=== PATIENT | female | born 1955 | race Hispanic/Latino ===

== ENCOUNTER → 2019-05-13 | Outpatient (CLI) | payer MEDICARE | END | disposition home or self-care (01) | LOC: SHCH 10:42 | PROVIDERS: ATTEND Internal Medicine Cardiovascular Disease | DX: I10 Essential (primary) hypertension (principal); R06.09 Other forms of dyspnea | CPT/HCPCS: 93306 ==

== ENCOUNTER → 2019-07-06 | Outpatient (CLI) | payer MEDICARE ==
[~2019-07-06] VITALS: Ht 149.9 cm; Wt 80.7 kg
[~2019-07-06] MED LIST: REGADENOSON 0.4 MG/5 ML PF SYG IVP SCH
== END | disposition home or self-care (01) ==
LOC: SHCH 08:34
PROVIDERS: ATTEND Internal Medicine Cardiovascular Disease
DX: I10 Essential (primary) hypertension (principal); M06.9 Rheumatoid arthritis, unspecified; E78.5 Hyperlipidemia, unspecified; K21.9 Gastro-esophageal reflux disease without esophagitis; R06.09 Other forms of dyspnea; R06.02 Shortness of breath; Z79.82 Long term (current) use of aspirin; Z79.899 Other long term (current) drug therapy
CPT/HCPCS: 78452; 93017; A9500 ×2; J2785; 96374

== ENCOUNTER → 2020-09-01 | Outpatient (CLI) | payer MEDICARE | END | disposition home or self-care (01) | LOC: OIH 14:30 | PROVIDERS: ATTEND Internal Medicine | DX: M19.071 Primary osteoarthritis, right ankle and foot (principal); M19.072 Primary osteoarthritis, left ankle and foot; M77.31 Calcaneal spur, right foot; M19.041 Primary osteoarthritis, right hand; M19.042 Primary osteoarthritis, left hand; M85.842 Other specified disorders of bone density and structure, left hand; M85.841 Other specified disorders of bone density and structure, right hand; M21.831 Other specified acquired deformities of right forearm; M19.031 Primary osteoarthritis, right wrist; M20.12 Hallux valgus (acquired), left foot | CPT/HCPCS: 73630 ==

== ENCOUNTER → 2020-10-12 | Outpatient (CLI) | payer MEDICARE | END | disposition home or self-care (01) | LOC: SHCH 14:57 | PROVIDERS: ATTEND Internal Medicine Cardiovascular Disease | DX: I25.10 Atherosclerotic heart disease of native coronary artery without angina pectoris (principal); R07.9 Chest pain, unspecified; R06.09 Other forms of dyspnea | CPT/HCPCS: 93306; 93356 ==

== ENCOUNTER → 2023-03-18 | Outpatient (CLI) | payer MEDICARE ==
[~2023-03-18] MED LIST changes: +REGADENOSON 0.4 MG/5 ML PF SYG IVP ONE; -REGADENOSON 0.4 MG/5 ML PF SYG IVP SCH
== END | disposition home or self-care (01) ==
LOC: SHCH 08:08
PROVIDERS: ATTEND Internal Medicine Cardiovascular Disease
DX: I25.119 Atherosclerotic heart disease of native coronary artery with unspecified angina pectoris (principal); R06.09 Other forms of dyspnea; I48.91 Unspecified atrial fibrillation
CPT/HCPCS: 78452; 96374; 93017; J2785; A9500 ×2

== ENCOUNTER → 2024-05-12 | Outpatient (CLI) | payer OTHER, MEDICARE ==
--- NOTE | 2024-05-13 07:09 | HMCSR ---
APPROVED REPORT Laterality: Bilateral VELOCITY AND DOPPLER WAVEFORM ANALYSIS STAINED GLASS INSTALLER (R) 117.3cm/sec, Biphasic, STAINED GLASS INSTALLER (L) 107.7cm/sec, Biphasic, Prof Fem Art. (R) 71.8cm/sec, Biphasic, Prof Fem Art. (L) 59.4cm/sec, Biphasic, Fem Art Prox. (R) 95.2cm/sec, Biphasic, Fem Art Prox. (L) 93.9cm/sec, Biphasic, Fem Art Mid. (R) 107.7cm/sec, Biphasic, Fem Art Mid. (L) 109.0cm/sec, Biphasic, Fem Art Dist (R) 111.8cm/sec, Biphasic, Fem Art Dist. (L) 100.8cm/sec, Biphasic, Pop Art(AK) (R) 64.9cm/sec, Biphasic, Pop Art (AK) (L) 67.6cm/sec, Biphasic, Pop Art (Fossa)(R) 60.7cm/sec, Biphasic, Pop Art (Fossa) (L) 80.1cm/sec, Biphasic, Pop Art(BK) (R) 74.5cm/sec, Biphasic, Pop Art (BK) (L) 78.7cm/sec, Biphasic, JEWELRY STORE MANAGER Prox. (R) 59.2cm/sec, Biphasic, JEWELRY STORE MANAGER Prox. (L) 113.3cm/sec, Biphasic, JEWELRY STORE MANAGER Mid. (R) 122.8cm/sec, Biphasic, JEWELRY STORE MANAGER Mid. (L) 107.7cm/sec, Biphasic, JEWELRY STORE MANAGER Dist. (R) 164.1cm/sec, Biphasic, Mild < 50% JEWELRY STORE MANAGER Dist. (L) 105.8cm/sec, Biphasic, Per Art Dist. (R) 43.7cm/sec, Biphasic, Per Art Dist. (L) 66.1cm/sec, Biphasic, [place] Prox. (R) 46.5cm/sec, Biphasic, EMERSON Prox. (L) 83.1cm/sec, Biphasic, EMERSON Mid. (R) 68.5cm/sec, Biphasic EMERSON Mid. (L) 86.9cm/sec, Biphasic, EMERSON Dist. (R) 71.8cm/sec, Biphasic, EMERSON Dist. (L) 88.8cm/sec, Biphasic, Technologist Impression Diffuse atherosclerosis throughout the bilateral lower extremities. There is evidence of mild stenosis in the right posterior tibial artery. Conclusion Mild peripheral arterial disease Conclusion Mild peripheral arterial disease
--- NOTE | 2024-05-13 07:09 | HMCSR ---
APPROVED REPORT Bilateral Lower Extremity Venous Study for DVT., Venous Competence.Study performed with patient in up right position or in reverse Trendelenburg. Vein Imaging CFV (R): Normal flow, augmentation and compression. No evidence of DVT. SFJ (R): Normal flow, augmentation and compression. No evidence of DVT. FEM (R): Normal flow, augmentation and compression. No evidence of DVT, 244 ms of DVR. POP (R): Normal flow, augmentation and compression. No evidence of DVT. DFV (R): Normal flow, augmentation and compression. No evidence of DVT. PTV (R): Normal flow, augmentation and compression. No evidence of DVT. Peroneals (R): Normal flow, augmentation and compression. No evidence of DVT. GAS (R): Normal flow, augmentation and compression. No evidence of DVT. CFV (L): Normal flow, augmen tation and compression. No evidence of DVT. SFJ (L): Normal flow, augmentation and compression. No evidence of DVT. FEM (L): Normal flow, augmentation and compression. No evidence of DVT. POP (L): Normal flow, augmentation and compression. No evidence of DVT, 222 ms of DVR. DFV (L): Normal flow, augmentation and compression. No evidence of DVT. PTV (L): Normal flow, augmentation and compression. No evidence of DVT. Peroneals (L): Normal flow, augmentation and compression. No evidence of DVT. GAS (L): Normal flow, augmentation and compression. No evidence of DVT. Technologist Impression The deep veins of the bilateral lower extremities appear patent and compressible without evidence of thrombus. Deep venous reflux noted. There is evidence of significant superficial venous insufficiency in the right smaller saphenous vein . RGSV Junction 2.9 mm 383 ms Mid thigh 2.5 mm 0 ms Knee 2.9 mm 0 ms Mid- calf 1.87 mm 194 ms RSSV Prox 2.7 mm 839 ms Mid 1.9 mm 0 ms LGSV Junction 3.1 mm 272 ms Mid thigh 2.9 mm 283 ms Knee 2.4 mm 0 ms Mid-calf 2.0 mm 383 ms LSSV Prox 1.9 mm 0 ms Mid 1.5 mm 0 ms Conclusion Deep venous reflux noted. There is evidence of significant superficial venous insufficiency in the right smaller saphenous vein . Consider formal venography with intravascular ultrasound if clinically indicated Conclusion Deep venous reflux noted. There is evidence of significant superficial venous insufficiency in the right smaller saphenous vein . Consider formal venography with intravascular ultrasound if clinically indicated
== END | disposition home or self-care (01) ==
LOC: SHCH 13:17
PROVIDERS: ATTEND Internal Medicine Cardiovascular Disease
DX: I70.293 Other atherosclerosis of native arteries of extremities, bilateral legs (principal); I87.2 Venous insufficiency (chronic) (peripheral); I87.1 Compression of vein
CPT/HCPCS: 93925; 93970